=== PATIENT | female | born 1980 | race Caucasian/White ===

== ENCOUNTER 2018-12-02 17:11 | Emergency (ER) | payer MEDICAID ==
[~2018-12-02] VITALS: Ht 162.6 cm; Wt 77.7 kg
[~2018-12-02 17:11] MED LIST: NO HOME MEDS
[2018-12-02 17:30] VITALS: BP 165/105
[2018-12-02] MEDS ORDERED: METH-360 PO (17:55)
[2018-12-02] MEDS ORDERED: NAPR-56 PO (17:55)
[2018-12-02] MEDS ORDERED: orphenadrine citrate 60mg/2ml inj. IM ONE (17:55)
[2018-12-02] MEDS ORDERED: ketorolac tromethamine 15mg/ml inj. IM ONE (17:55)
== END 2018-12-02 18:20 | disposition home or self-care (01) ==
LOC: ER 17:12
DX: S16.1XXA Strain of muscle, fascia and tendon at neck level, initial encounter (principal); R00.2 Palpitations; F15.90 Other stimulant use, unspecified, uncomplicated; Z98.890 Other specified postprocedural states; Z79.899 Other long term (current) drug therapy; X58.XXXA Exposure to other specified factors, initial encounter; Y93.89 Activity, other specified; Y92.89 Other specified places as the place of occurrence of the external cause; Y99.8 Other external cause status
CPT/HCPCS: 93005; 96372; 99283; J1885; J2360

== ENCOUNTER 2019-01-06 19:02 | Emergency (ER) | payer MEDICAID, OTHER ==
[~2019-01-06] VITALS: Ht 162.6 cm; Wt 78.2 kg
[~2019-01-06 19:02] MED LIST changes: +METH-360 PO
[2019-01-06 19:22] LABS: BASOPHILS # (AUTO) 0.1 X10'3 (0-0.2); BASOPHILS % (AUTO) 0.9 % (0-1); EOSINOPHILS # (AUTO) 0.1 X10'3 (0-0.9); EOSINOPHILS % (AUTO) 1.9 % (0-6); HEMOGLOBIN 15.7 g/dl (12.0-16.0); LYMPHOCYTES % (AUTO) 29.1 % (21-51); MEAN CORPUSCULAR HEMOGLOBIN 31.4 PG (27.0-31.0); MEAN CORPUSCULAR HGB CONC 34.1 g/dL (33.0-36.5); MEAN CORPUSCULAR VOLUME 92.1 FL (78-98); MONOCYTES # (AUTO) 0.4 X10'3 (0-0.9); MONOCYTES % (AUTO) 6.1 % (2-12); NEUTROPHILS # (AUTO) 4.3 X10'3 (1.8-7.7); PLATELET COUNT 302 X10'3 (140-440); RED BLOOD COUNT 4.99 X10'6 (4.20-5.60); RED CELL DISTRIBUTION WIDTH 13.7 % (11.5-14.5)
[2019-01-06 19:34] LABS: PARTIAL THROMBOPLASTIN TIME 30 SECONDS (22-32)
[2019-01-06 19:37] LABS: ALANINE AMINOTRANSFERASE 25 U/L (12-78); ALBUMIN 3.5 G/DL (3.4-5.0); ALBUMIN/GLOBULIN RATIO 0.9 (1.1-1.5); ALKALINE PHOSPHATASE 76 IU/L (46-116); ANION GAP 9 (8-16); ASPARTATE AMINO TRANSFERASE 16 U/L (10-37); BILIRUBIN,TOTAL 0.2 MG/DL (0.1-1.0); BLOOD UREA NITROGEN 19 MG/DL (7-18); BUN/CREATININE RATIO 25.3 (6.6-38.0); CALCIUM 9.3 MG/DL (8.5-10.1); CHLORIDE 107 MMOL/L (99-107); CREATININE 0.75 MG/DL (0.40-0.90); GLUCOSE 113 MG/DL (70-104); POTASSIUM 4.4 MMOL/L (3.5-5.1); SODIUM 141 MMOL/L (135-145); TOTAL CARBON DIOXIDE 25.4 MMOL/L (24-32); TOTAL PROTEIN 7.5 G/DL (6.4-8.2); eGFR 86 ML/MIN
[2019-01-06 23:09] VITALS: BP 133/87
== END 2019-01-06 23:11 | disposition home or self-care (01) ==
LOC: ER 19:05
DX: R07.89 Other chest pain (principal); R06.02 Shortness of breath; R42 Dizziness and giddiness; R20.2 Paresthesia of skin; I10 Essential (primary) hypertension; Z86.73 Personal history of transient ischemic attack (TIA), and cerebral infarction without residual deficits; F15.90 Other stimulant use, unspecified, uncomplicated; F17.200 Nicotine dependence, unspecified, uncomplicated; Z79.899 Other long term (current) drug therapy
CPT/HCPCS: 36415; 71045; 80053; 84484; 85025; 85610; 85730; 93005; 99284

== ENCOUNTER 2023-02-16 14:35 | Emergency (ER) | payer MEDICAID ==
[~2023-02-16] VITALS: Ht 162.6 cm; Wt 86.7 kg
[~2023-02-16 14:35] MED LIST changes: +IBUP-1986 PO
[2023-02-16 14:38] VITALS: BP 119/77; PULSE 114; RESP 16; TEMP 98.3; O2SAT 97
[2023-02-16 15:20] LABS: BASOPHILS # (AUTO) 0.1 X10'3 (0-0.2); BASOPHILS % (AUTO) 0.5 % (0-1); EOSINOPHILS # (AUTO) 0.1 X10'3 (0-0.9); EOSINOPHILS % (AUTO) 0.8 % (0-6); HEMATOCRIT 43.3 % (35.0-45.0); HEMOGLOBIN 14.1 g/dl (12.0-16.0); LYMPHOCYTES # (AUTO) 1.5 X10'3 (1.1-4.8); LYMPHOCYTES % (AUTO) 9.4 % (21-51); MEAN CORPUSCULAR HEMOGLOBIN 28.9 PG (27.0-31.0); MEAN CORPUSCULAR HGB CONC 32.5 g/dL (33.0-36.5); MEAN PLATELET VOLUME 7.7 FL (7.4-10.4); MONOCYTES # (AUTO) 1.1 X10'3 (0-0.9); MONOCYTES % (AUTO) 6.7 % (2-12); NEUTROPHILS # (AUTO) 13.5 X10'3 (1.8-7.7); NEUTROPHILS % (AUTO) 82.6 % (42-75); PLATELET COUNT 291 X10'3 (140-440); RED BLOOD COUNT 4.86 X10'6 (4.20-5.60); RED CELL DISTRIBUTION WIDTH 15.2 % (11.5-14.5); WHITE BLOOD COUNT 16.3 X10'3 (4.5-11.0)
[2023-02-16 15:34] LABS: ALANINE AMINOTRANSFERASE 19 U/L (12-78); ALBUMIN 3.2 G/DL (3.4-5.0); ALBUMIN/GLOBULIN RATIO 0.7 (1.1-1.5); ALKALINE PHOSPHATASE 108 IU/L (46-116); ANION GAP 13 (8-16); ASPARTATE AMINO TRANSFERASE 14 U/L (10-37); BILIRUBIN,TOTAL 0.3 MG/DL (0.1-1.0); BLOOD UREA NITROGEN 15 MG/DL (7-18); BUN/CREATININE RATIO 11.5 (10.0-20.0); C-REACTIVE PROTEIN 18.01 MG/DL (0.0-0.5); CALCIUM 9.1 MG/DL (8.5-10.1); CHLORIDE 100 MMOL/L (99-107); GLUCOSE 126 MG/DL (70-104); POTASSIUM 3.1 MMOL/L (3.5-5.1); SODIUM 136 MMOL/L (135-145); TOTAL CARBON DIOXIDE 22.9 MMOL/L (24-32); TOTAL PROTEIN 7.9 G/DL (6.4-8.2); eCRCL 48 ML/MIN; eGFR 44 ML/MIN
--- NOTE | 2023-02-16 15:59 | NUR ---
not in loby @[id number]
== END 2023-02-16 23:01 | disposition left against medical advice (07) ==
LOC: ER 14:36
DX: L02.413 Cutaneous abscess of right upper limb (principal); Z53.21 Procedure and treatment not carried out due to patient leaving prior to being seen by health care provider
CPT/HCPCS: 36415; 80053; 85025; 85651; 86140; 99281

== ENCOUNTER 2023-05-12 14:47 | Emergency (ER) | payer MEDICAID ==
[~2023-05-12] VITALS: Ht 165.1 cm; Wt 90.9 kg
[2023-05-12 15:52] VITALS: BP 165/113; PULSE 111; RESP 20; TEMP 98.2; O2SAT 98
[2023-05-13] MEDS ORDERED: CLIN-97 PO (00:48)
== END 2023-05-12 17:35 | disposition left against medical advice (07) ==
LOC: ER 14:48
DX: S60.947A Unspecified superficial injury of left little finger, initial encounter (principal); Z53.21 Procedure and treatment not carried out due to patient leaving prior to being seen by health care provider; X58.XXXA Exposure to other specified factors, initial encounter; Y93.89 Activity, other specified; Y92.89 Other specified places as the place of occurrence of the external cause; Y99.8 Other external cause status
CPT/HCPCS: 99281

== ENCOUNTER 2023-05-13 00:38 | Emergency (ER) | payer MEDICAID ==
[~2023-05-13] VITALS: Ht 162.6 cm; Wt 93.2 kg
[2023-05-13 00:46] VITALS: BP 131/85; PULSE 125; RESP 20; TEMP 98.9; O2SAT 96
[2023-05-13] MEDS ORDERED: CLIN-97 PO (00:48)
[2023-05-13] MEDS: clindamycin 150mg capsule PO ONE (01:48)
[2023-05-13] MEDS: metoclopramide 10mg tablet PO ONE (01:48)
[2023-05-13] MEDS: CefTRIAXone 1000mg IM Kit (w/lidocaine diluent) IM ONE (01:49)
[2023-05-13] MEDS: ketorolac trometh inj. 60 MG/2 ML VIAL IM ONE (01:49)
== END 2023-05-13 02:04 | disposition home or self-care (01) ==
LOC: ER 00:38
DX: L03.012 Cellulitis of left finger (principal); I10 Essential (primary) hypertension; F15.90 Other stimulant use, unspecified, uncomplicated; F10.10 Alcohol abuse, uncomplicated; Z98.890 Other specified postprocedural states; Z86.73 Personal history of transient ischemic attack (TIA), and cerebral infarction without residual deficits; Z79.1 Long term (current) use of non-steroidal anti-inflammatories (NSAID); Y90.9 Presence of alcohol in blood, level not specified
CPT/HCPCS: 96372; 99284; J0696; J1885

== ENCOUNTER 2023-09-17 00:23 | Emergency (ER) | payer MEDICAID ==
[~2023-09-17] VITALS: Ht 162.6 cm; Wt 91.5 kg
[~2023-09-17 00:23] MED LIST changes: +CLIN-97 PO
[2023-09-17 00:36] VITALS: TEMP 98.8
[2023-09-17] MEDS ORDERED: MICO45CR73 VG (02:31)
[2023-09-17] MEDS ORDERED: AMOX500C2 PO (02:31)
[2023-09-17] MEDS ORDERED: IBUP-1984 PO (02:31)
[2023-09-17] MEDS: ibuprofen tablet 400 MG TABLET PO ONE (02:38)
[2023-09-17] MEDS: amoxicillin 250mg capsule PO ONE (02:38)
[2023-09-17] MEDS: ondansetron 4mg rapidly disintigrating tab PO ONE (02:40)
[2023-09-17] MEDS ORDERED: AMLO10TA14 PO (02:45)
[2023-09-17] MEDS: amLODIPine 5mg tablet PO ONE (02:53)
[2023-09-17 03:25] VITALS: BP 168/114; PULSE 101; RESP 16; O2SAT 96
== END 2023-09-17 03:24 | disposition home or self-care (01) ==
LOC: ER 00:23
DX: K08.89 Other specified disorders of teeth and supporting structures (principal); B37.9 Candidiasis, unspecified; I10 Essential (primary) hypertension; F15.90 Other stimulant use, unspecified, uncomplicated; Z79.1 Long term (current) use of non-steroidal anti-inflammatories (NSAID); Z79.2 Long term (current) use of antibiotics; Z79.899 Other long term (current) drug therapy; Z98.890 Other specified postprocedural states
CPT/HCPCS: 99284

== ENCOUNTER 2024-04-13 17:46 | Emergency (ER) | payer MEDICAID ==
[~2024-04-13] VITALS: Ht 162.6 cm; Wt 68.6 kg
[~2024-04-13 17:46] MED LIST changes: +AMLO10TA14 PO; +MICO45CR73 VG
[2024-04-13 18:31] VITALS: PULSE 97
[2024-04-13 19:25] VITALS: BP 145/84; RESP 15; TEMP 98.5; O2SAT 98
== END 2024-04-13 19:25 ==
LOC: ER 17:46
DX: F10.129 Alcohol abuse with intoxication, unspecified (principal); I10 Essential (primary) hypertension; F15.90 Other stimulant use, unspecified, uncomplicated; Z02.89 Encounter for other administrative examinations; Z86.73 Personal history of transient ischemic attack (TIA), and cerebral infarction without residual deficits; Z98.890 Other specified postprocedural states; Y90.9 Presence of alcohol in blood, level not specified
CPT/HCPCS: 99283

== ENCOUNTER 2024-12-12 15:20 | Emergency (ER) | payer MEDICAID ==
[~2024-12-12] VITALS: Ht 162.6 cm; Wt 104.5 kg
[~2024-12-12 15:20] MED LIST changes: +CLIN-224 PO; -CLIN-97 PO
[2024-12-12 15:33] VITALS: TEMP 97.6
--- NOTE | 2024-12-12 15:41 | Physician Documentation ---
History of Present Illness ~ Chief Complaint: ETOH Stated Complaint: WANTS TO DETOX Primary Medical Doctor: None HPI 44-year-old female presents to the ED with a complaint of alcohol withdrawal. Her last drink was two days ago. She states that she drinks approximately a 5th of hard alcohol daily. Denies any history of seizures however she reports a multiple cardiac events along with the hypertension. Medication Reconciliation Allergies: Coded Allergies: No Known Allergies (Unverified , 12/12/24) Scheduled Amlodipine Besylate (Amlodipine Besylate), 1 TAB PO DAILY Clindamycin HCL* (Clindamycin HCL*), 1 CAP PO Q8H Ibuprofen (Ibuprofen), 1 TAB PO Q8H Methocarbamol (Robaxin-750), 1 TAB PO HS Miconazole Nitrate (Monistat 7), 1 APPLICATOR VG HS Miscellaneous Medications Home Med List (No Home Medications), (Reported) Past Medical History Past Medical History: CVA/TIA/Stroke, Hypertension Past Surgical History: Alcohol Use: Abuse Drug Use: methamphetamine Lives In: Home Physical Exam Vital Signs: Temperature: 97.6, Source: Temporal, Heart Rate: 107, Respiratory Rate: 18, BP: 175/117, Pulse Oximetry: 96, Weight: 104.550 Progress Results/Orders Results/Orders Orders - SETH GALLO H [employer] Chest,Single View (12/12/24 15:36) BMP (12/12/24 15:36) PBNP (12/12/24 15:36) Ethanol (12/12/24 15:36) ALP (12/12/24 16:17) ALT (12/12/24 16:17) AST (12/12/24 16:17) Completed Orders - SETH GALLO [employer] Chest,Single View (12/12/24 15:36) Cbc/Diff (12/12/24 15:36) Electrocardiogram (12/12/24 15:36) Hs Troponin I W Calculations (12/12/24 15:36) Vital Signs 12/12/24 15:33 Temp 97.6 Pulse 107 Resp 18 B/P (MAP) 175/117 Pulse Ox 96 Laboratory Tests Test 12/12/24 16:17 White Blood Count 6.3 Red Blood Count 5.37 Hemoglobin 16.3 H Hematocrit 49.1 H Mean Corpuscular Volume 91.4 Mean Corpuscular Hemoglobin 30.4 Mean Corpuscular Hemoglobin Concent 33.2 Red Cell Distribution Width 16.0 H Platelet Count 290 Mean Platelet Volume 7.9 Neutrophils (%) (Auto) 72.8 Lymphocytes (%) (Auto) 18.8 L Monocytes (%) (Auto) 6.4 Eosinophils (%) (Auto) 1.1 Basophils (%) (Auto) 0.9 Neutrophils # (Auto) 4.6 Lymphocytes # (Auto) 1.2 Monocytes # (Auto) 0.4 Eosinophils # (Auto) 0.1 Basophils # (Auto) 0.1 CBC Comment Sodium Level 137 Potassium Level 3.5 Chloride Level 104 Carbon Dioxide Level 22.4 L Anion Gap 11 Blood Urea Nitrogen 10 Creatinine 0.93 H Estimated GFR/1.73 m2 65 BUN/Creatinine Ratio 10.8 Glucose Level 170 H Calcium Level 9.5 Troponin I High Sensitivity 9 Pro-B-Type Natriuretic Peptide 338 H Albumin 3.7 Chemistry Comments Ethyl Alcohol Level < 10 Departure Impression: Primary Impression: Alcohol abuse Additional Impression: Alcohol dependence Referrals: NO PRIMARY CARE PROVIDER (PCP) Signature Scribe Signature: d Attestation: Scribed for Emergency,Department by Seth Musa NP . 12/12/24 17:45 SETH GALLO NP Dec 12, 2024 15:41
--- NOTE | 2024-12-12 15:51 | RADIOLOGY REPORT ---
CHEST RADIOGRAPH Indication: CP Technique: Single frontal view of the chest was obtained COMPARISON: None FINDINGS: Lines and Tubes: None Lungs: Clear Pleura: No effusion. No pneumothorax. Cardiomediastinal contours: Unremarkable Bones: Unremarkable IMPRESSION: No acute disease.
--- NOTE | 2024-12-12 16:28 | ELECTROCARDIOGRAPH REPORT ---
[facility] Test Date: 2024-12-12 Test Time: 16:25:24 Pat Name: SELVIN QUINTERO Department: [facility] Patient ID: [facility]-[id number] Room: Gender: F Insurance Verify Rep: : 1980 Requested By: VANDANA GALLO Order Number: [id number] Reading MD: Measurements Intervals [place] Rate: 113 P: 30 ME: 147 QRS: -30 QRSD: 87 T: 126 QT: 355 QTc: 487 Interpretive Statements Sinus tachycardia LVH with secondary repolarization abnormality Inferior infarct, old Anterior infarct, old Please click the below link to view image of tracing.
[2024-12-12 16:45] LABS: MEAN PLATELET VOLUME 7.9 FL (7.4-10.4); RED CELL DISTRIBUTION WIDTH 16.0 % (11.5-14.5)
[2024-12-12 17:02] LABS: CREATININE 0.93 MG/DL (0.40-0.90); ETHANOL < 10 MG/DL (<10); PRO BRAIN NATRIURETIC PEPTIDE 338 PG/ML (0-125); TOTAL CARBON DIOXIDE 22.4 MMOL/L (24-32); eCRCL 65 ML/MIN; eGFR 65 ML/MIN
[2024-12-12 20:46] VITALS: BP 171/117; PULSE 100; RESP 16; O2SAT 99
== END 2024-12-12 21:04 | disposition left against medical advice (07) ==
LOC: ER 15:21
DX: F10.239 Alcohol dependence with withdrawal, unspecified (principal); F15.90 Other stimulant use, unspecified, uncomplicated; I10 Essential (primary) hypertension; I25.2 Old myocardial infarction; Z86.73 Personal history of transient ischemic attack (TIA), and cerebral infarction without residual deficits; Z79.899 Other long term (current) drug therapy; Y90.0 Blood alcohol level of less than 20 mg/100 ml
CPT/HCPCS: 36415; 71045; 80048; 80320; 83880; 84075; 84450; 84460; 84484; 85025; 93005; 99285